=== PATIENT | female | born 1940 | race Caucasian/White ===

== ENCOUNTER 2022-02-10 08:46 | Inpatient (IN) | payer MEDICARE, BC ==
[2022-02-10] VITALS (9 sets, daily range): BP systolic 110–141; BP diastolic 45–72
[~2022-02-10] VITALS: Ht 160 cm; Wt 28.4 kg
--- NOTE | 2022-02-10 09:05 | NUR ---
INFORM ED MD MAGALLANES OF PT HX AND STATUS, RECEIVED VO FOR LAB DRAW CMP, CBCD
[2022-02-10 09:27] LABS: BASOPHILS % (AUTO) 0.2 % (0-1); EOSINOPHILS % (AUTO) 0 % (0-6); HEMATOCRIT 28.4 % (35.0-45.0); HEMOGLOBIN 9.3 g/dl (12.0-16.0); LYMPHOCYTES # (AUTO) 1.7 X10'3 (1.1-4.8); MEAN CORPUSCULAR HEMOGLOBIN 29.9 PG (27.0-31.0); MEAN CORPUSCULAR HGB CONC 32.6 g/dL (33.0-36.5); MEAN CORPUSCULAR VOLUME 91.9 FL (78-98); MEAN PLATELET VOLUME 7.6 FL (7.4-10.4); MONOCYTES # (AUTO) 0.7 X10'3 (0-0.9); MONOCYTES % (AUTO) 5.6 % (2-12); NEUTROPHILS # (AUTO) 9.6 X10'3 (1.8-7.7); NEUTROPHILS % (AUTO) 80.2 % (42-75); PLATELET COUNT 250 X10'3 (140-440); RED BLOOD COUNT 3.09 X10'6 (4.20-5.60); RED CELL DISTRIBUTION WIDTH 15.5 % (11.5-14.5)
[2022-02-10 09:36] LABS: ALANINE AMINOTRANSFERASE 24 U/L (12-78); ALBUMIN 3.4 G/DL (3.4-5.0); ALBUMIN/GLOBULIN RATIO 1.1 (1.1-1.5); ALKALINE PHOSPHATASE 43 IU/L (46-116); ANION GAP 9 (8-16); ASPARTATE AMINO TRANSFERASE 27 U/L (10-37); BILIRUBIN,TOTAL 0.3 MG/DL (0.1-1.0); BLOOD UREA NITROGEN 56 MG/DL (7-18); BUN/CREATININE RATIO 64.4 (6.6-38.0); CALCIUM 8.5 MG/DL (8.5-10.1); CHLORIDE 108 MMOL/L (99-107); CREATININE 0.87 MG/DL (0.40-0.90); GLUCOSE 225 MG/DL (70-104); SODIUM 140 MMOL/L (135-145); TOTAL CARBON DIOXIDE 23.1 MMOL/L (24-32); TOTAL PROTEIN 6.5 G/DL (6.4-8.2); eGFR 62 ML/MIN
[2022-02-10] MEDS ORDERED: pantoprazole 40 MG vial IV ONE (11:40)
[2022-02-10] MEDS ORDERED: ondansetron/PF 4mg/2ml inj IV ONE (11:40)
[2022-02-10] MEDS ORDERED: normal saline 1000ml 1,000 ML IV ONE (11:40)
[2022-02-10] MEDS ORDERED: IODIXANOL 270 MG/ML INFUS..BTL 100ML inj. IV ONE (11:47)
[2022-02-10] MEDS: normal saline 1000ml 1,000 ML IV SCH ×2 (11:55→21:31)
[2022-02-10] MEDS ORDERED: ondansetron/PF 4mg/2ml inj IV PRN (11:55)
[2022-02-10] MEDS ORDERED: acetaminophen 325mg tablet PO PRN (11:55)
[2022-02-10] MEDS ORDERED: magnesium hydroxide 30ml (MOM) UD suspension PO PRN (11:55)
[2022-02-10] MEDS ORDERED: mag hydrox/Alum hydrox/simeth 30ml oral suspension PO PRN (11:55)
[2022-02-10] MEDS: MESSAGE TO NURSING PO NR (12:00)
[2022-02-10] MEDS ORDERED: pantoprazole 40MG/NS 100ML BAG 100 ML IV SCH (12:20)
[2022-02-10 12:23] LABS: APTT 23 SECONDS (22-32)
[2022-02-10 12:45] LABS: HEMATOCRIT 24.7 % (35.0-45.0); HEMOGLOBIN 8.2 g/dl (12.0-16.0); MEAN CORPUSCULAR HEMOGLOBIN 30.2 PG (27.0-31.0); MEAN CORPUSCULAR VOLUME 91.5 FL (78-98); PLATELET COUNT 211 X10'3 (140-440); RED CELL DISTRIBUTION WIDTH 15.3 % (11.5-14.5); WHITE BLOOD COUNT 11.6 X10'3 (4.5-11.0)
[2022-02-10] MEDS ORDERED: fentaNYL/PF 50MCG/1 ML 2ML syringe ONE (12:56)
[2022-02-10] MEDS ORDERED: MIDAZolam 1 MG/ML 5ML VIAL ONE (12:56)
[2022-02-10] MEDS ORDERED: LIDOcaine Viscous 15ml cup ONE (12:56)
[2022-02-10] MEDS: pantoprazole 40MG/NS 100ML BAG 100 ML IV SCH ×2 (16:14→21:31)
[2022-02-10 18:51] LABS: HEMATOCRIT 23.2 % (35.0-45.0); HEMOGLOBIN 7.6 g/dl (12.0-16.0); MEAN CORPUSCULAR HEMOGLOBIN 30.5 PG (27.0-31.0); MEAN CORPUSCULAR VOLUME 92.7 FL (78-98); MEAN PLATELET VOLUME 7.3 FL (7.4-10.4); PLATELET COUNT 195 X10'3 (140-440); RED CELL DISTRIBUTION WIDTH 15.4 % (11.5-14.5); WHITE BLOOD COUNT 8.9 X10'3 (4.5-11.0)
[2022-02-10] MEDS ORDERED: METF-1203 PO (19:26)
[2022-02-10] MEDS ORDERED: CLIN-30 PO (19:26)
[2022-02-10] MEDS ORDERED: ATOR20TA66 PO (19:26)
[2022-02-10] MEDS ORDERED: LOSA50TA64 PO (19:26)
[2022-02-10] MEDS ORDERED: FLO0.4C PO (19:26)
--- NOTE | 2022-02-10 19:38 | NUR ---
REPORT RECEIVED FROM SALVATORE FARRIS IN ER AND WILL ASSUME CARE WHEN PATIENT ARRIVES.
[2022-02-10] MEDS: docusate sod 100mg capsule PO SCH (20:00)
[2022-02-11] VITALS (10 sets, daily range): BP systolic 105–123; BP diastolic 44–55
[2022-02-11] MEDS: pantoprazole 40MG/NS 100ML BAG 100 ML IV SCH ×2 (01:25→05:48)
[2022-02-11] MEDS: normal saline 1000ml 1,000 ML IV SCH (04:12)
[2022-02-11 06:15] LABS: BASOPHILS # (AUTO) 0.1 X10'3 (0-0.2); BASOPHILS % (AUTO) 0.6 % (0-1); EOSINOPHILS % (AUTO) 0.1 % (0-6); HEMATOCRIT 27.4 % (35.0-45.0); HEMOGLOBIN 9.3 g/dl (12.0-16.0); LYMPHOCYTES # (AUTO) 1.3 X10'3 (1.1-4.8); LYMPHOCYTES % (AUTO) 15.4 % (21-51); MEAN CORPUSCULAR HEMOGLOBIN 30.9 PG (27.0-31.0); MEAN CORPUSCULAR HGB CONC 34.1 g/dL (33.0-36.5); MEAN CORPUSCULAR VOLUME 90.6 FL (78-98); MEAN PLATELET VOLUME 7.5 FL (7.4-10.4); MONOCYTES # (AUTO) 0.7 X10'3 (0-0.9); MONOCYTES % (AUTO) 8.2 % (2-12); NEUTROPHILS # (AUTO) 6.1 X10'3 (1.8-7.7); NEUTROPHILS % (AUTO) 75.7 % (42-75); PLATELET COUNT 159 X10'3 (140-440); RED BLOOD COUNT 3.02 X10'6 (4.20-5.60); RED CELL DISTRIBUTION WIDTH 15.1 % (11.5-14.5); WHITE BLOOD COUNT 8.1 X10'3 (4.5-11.0)
--- NOTE | 2022-02-11 06:17 | NUR ---
Problems reprioritized. Patient report given, questions answered & plan of care reviewed with DORI FARRIS.
--- NOTE | 2022-02-11 06:24 | NUR ---
Patient in room PCU 3013. I have received report from BRENTON Brown and had the opportunity to ask questions and assume patient care.
[2022-02-11 06:32] LABS: ALBUMIN 2.7 G/DL (3.4-5.0); ANION GAP 8 (8-16); BLOOD UREA NITROGEN 33 MG/DL (7-18); BUN/CREATININE RATIO 44.6 (6.6-38.0); CALCIUM 8.3 MG/DL (8.5-10.1); CHLORIDE 114 MMOL/L (99-107); CREATININE 0.74 MG/DL (0.40-0.90); GLUCOSE 130 MG/DL (70-104); POTASSIUM 4.1 MMOL/L (3.5-5.1); SODIUM 146 MMOL/L (135-145); TOTAL CARBON DIOXIDE 24.2 MMOL/L (24-32); eGFR 75 ML/MIN
[2022-02-11] MEDS: docusate sod 100mg capsule PO SCH (08:00)
[2022-02-11] MEDS ORDERED: pantoprazole 40mg Tablet.DR PO SCH (09:20)
[2022-02-11] MEDS ORDERED: PANT-47 PO ×3 (09:23→15:20)
--- NOTE | 2022-02-11 10:42 | NUR ---
Malnutrition consult: Pt unsure of wt loss though also reports 2-13 lb wt loss with decreased appetite per malnutrition risk screen with RN. Noted pt documented with bed scaled wt of 28.4 kg (62 lbs). Pt seen at bedside, believes she may have lost weight d/t NPO status for a few days secondary to GIB. Pt reports ABW is likely around 160 lbs which is her UBW, d/w RN. Pt endorses a good appetite, has no visual fat or muscle wasting, and no documented decrease in muscle strength or edema. Pt currently lacks a minimum of two criteria for malnutrition. Pt denies food allergies or difficulty chewing or swallowing. Will continue to follow. Addendum: 02/11/22 at [address] Amended: Links added.
[2022-02-11] MEDS: MESSAGE TO NURSING PO NR (10:46)
[2022-02-11 12:50] LABS: HEMATOCRIT 26.7 % (35.0-45.0); HEMOGLOBIN 9.1 g/dl (12.0-16.0); MEAN CORPUSCULAR HEMOGLOBIN 30.7 PG (27.0-31.0); MEAN CORPUSCULAR HGB CONC 33.9 g/dL (33.0-36.5); MEAN CORPUSCULAR VOLUME 90.5 FL (78-98); MEAN PLATELET VOLUME 7.3 FL (7.4-10.4); PLATELET COUNT 153 X10'3 (140-440); RED BLOOD COUNT 2.95 X10'6 (4.20-5.60); RED CELL DISTRIBUTION WIDTH 15.5 % (11.5-14.5); WHITE BLOOD COUNT 6.7 X10'3 (4.5-11.0)
--- NOTE | 2022-02-11 15:00 | NUR ---
Pt discharged to home, with all belongings, in private vehicle, accompanied by son. Discharge instructions and medications reviewed. New prescriptions sent to [facility] in [place], [place] and [facility] in [place], [place]. Pt instructed to follow up with PCP in 1 week, and to return to ED if symptoms return. Pt states understanding and willingness to comply with discharge instructions. IV DC'd, cannula intact. Pt escorted to front lobby via wheelchair by PCT.
[2022-02-11] MEDS ORDERED: PANT20TA18 PO (15:14)
== END 2022-02-11 14:56 | disposition home or self-care (01) | DRG 378 ==
LOC: ER 08:46 → ED HOLD 11:59 → PCU 3S 19:53
PROVIDERS: ADMIT Family Medicine; ATTEND Family Medicine
PROC: 0DB78ZX Excision of Stomach, Pylorus, Via Natural or Artificial Opening Endoscopic, Diagnostic (ICD-10-PCS; principal; 2022-02-10)
PROC: 30233N1 Transfusion of Nonautologous Red Blood Cells into Peripheral Vein, Percutaneous Approach (ICD-10-PCS; 2022-02-10)
PROC: BW211ZZ Computerized Tomography (CT Scan) of Abdomen and Pelvis using Low Osmolar Contrast (ICD-10-PCS; 2022-02-10)
PROC: 0DJ08ZZ Inspection of Upper Intestinal Tract, Via Natural or Artificial Opening Endoscopic (ICD-10-PCS; 2022-02-10)
DX: K26.4 Chronic or unspecified duodenal ulcer with hemorrhage (principal); D62 Acute posthemorrhagic anemia; I10 Essential (primary) hypertension; E11.9 Type 2 diabetes mellitus without complications; Z96.653 Presence of artificial knee joint, bilateral
CPT/HCPCS: 36415; 36430; 43239; 74177; 80048; 80053; 82948; 83605; 83735; 84145; 84484; 85025; 85027; 85610; 85730; 86885; 86900; 86901; 86920; 87040; 87081; 88305; 93005; 99152; 99291; A4620; C9113; G0378; J2250; J2405; J3010; J3490; J7030; P9016; Q9967